=== PATIENT | male | born 1965 | race African-American/Black ===

== ENCOUNTER 2020-11-18 14:52 | Emergency (ER) | payer MEDICAID, OTHER ==
[~2020-11-18] VITALS: Ht 185.4 cm; Wt 127.0 kg
[~2020-11-18 14:52] MED LIST: AMLO10TA59 PO
[2020-11-18] MEDS ORDERED: NAPR220T66 PO (15:08)
[2020-11-18 15:21] LABS: BASOPHILS # (AUTO) 0.1 K/uL (0.0-8.0); BASOPHILS % (AUTO) 0.5 % (0.0-2.0); EOSINOPHILS # (AUTO) 0.1 K/uL (0.0-0.7); EOSINOPHILS % (AUTO) 0.4 % (0.0-7.0); HEMATOCRIT 43.5 % (36.7-47.1); HEMOGLOBIN 14.4 g/dL (12.5-16.3); LYMPHOCYTES # (AUTO) 3.9 K/uL (20.0-40.0); LYMPHOCYTES % (AUTO) 27.7 % (20.5-51.5); MEAN CORPUSCULAR HEMOGLOBIN 27.5 uug (23.8-33.4); MEAN CORPUSCULAR HGB CONC 33 g/dL (32.5-36.3); MEAN CORPUSCULAR VOLUME 82.8 fL (73.0-96.2); MONOCYTES # (AUTO) 0.8 K/uL (2.0-10.0); MONOCYTES % (AUTO) 5.9 % (0.0-11.0); NEUTROPHILS # (AUTO) 9.3 K/uL (1.8-8.9); NEUTROPHILS % (AUTO) 65.5 % (38.5-71.5); PLATELET COUNT (AUTO) 240 K/uL (152-348); RED BLOOD CELL COUNT(AUTO) 5.25 MIL/uL (4.06-5.63); WHITE BLOOD COUNT (AUTO) 14.2 K/uL (3.6-10.2)
[2020-11-18] MEDS ORDERED: ASPIRIN 325 MG TABLET ONE (15:26)
[2020-11-18] MEDS ORDERED: MAG HYDROX/AL HYDROX/SIMETH 30 ML LIQUID UDC ONE (15:27)
[2020-11-18] MEDS ORDERED: DICYCLOMINE HCL LIQ 10 MG/5 ML UDC ONE (15:27)
[2020-11-18] MEDS ORDERED: NITROGLYCERIN 0.4 MG/TAB BOTTLE SL ONE (15:27)
[2020-11-18] MEDS ORDERED: PANTOPRAZOLE SODIUM 40 MG VIAL ONE (15:27)
[2020-11-18 15:30] LABS: CREATININE 1.2 mg/dL (0.6-1.3); POTASSIUM 3.1 mmol/L (3.5-5.1)
[2020-11-18] MEDS: PANTOPRAZOLE SODIUM 40 MG VIAL IV ONE (15:30)
[2020-11-18] MEDS: MAG HYDROX/AL HYDROX/SIMETH 30 ML LIQUID UDC PO ONE (15:32)
[2020-11-18] MEDS: NITROGLYCERIN 0.4 MG/TAB BOTTLE SL ONE (15:32)
[2020-11-18] MEDS: DICYCLOMINE HCL LIQ 10 MG/5 ML UDC PO ONE (15:33)
[2020-11-18] MEDS: ASPIRIN 325 MG TABLET PO ONE (15:33)
[2020-11-18] MEDS ORDERED: LABETALOL HCL 100 MG/20 ML VIAL ONE (15:40)
[2020-11-18] MEDS: LABETALOL HCL 100 MG/20 ML VIAL IV ONE ×2 (15:42→16:02)
--- NOTE | 2020-11-18 15:46 | NUR ---
Pt denies chest pain/discomfort, and shortness of breath. Walked to the bathroom w/o chest discomfort.
[2020-11-18] MEDS ORDERED: CLON0.2T PO (16:04)
--- NOTE | 2020-11-18 16:30 | NUR ---
Pt remaines pain free. Pt states he has an appointment w/ his PCP tommorow, and will follow up.
[2020-11-18 16:34] VITALS: BP 159/89
--- NOTE | 2020-11-18 16:35 | NUR ---
IV removed. Catheter intact and site benign. Pressure and 4x4 gauze applied to site. No bleeding noted.
--- NOTE | 2020-11-18 16:38 | NUR ---
Patient discharged to home in stable condition. Written and verbal after care instructions given. Patient verbalizes understanding of instructions. Stressed follow up or return to ER for worsening s/s.
== END 2020-11-18 16:38 | disposition home or self-care (01) ==
LOC: ER 14:52
DX: R07.9 Chest pain, unspecified (principal); I10 Essential (primary) hypertension; R94.31 Abnormal electrocardiogram [ECG] [EKG]; Z88.1 Allergy status to other antibiotic agents
CPT/HCPCS: 36415; 71045; 80048; 84484; 85025; 93005 ×2; 96374; 96375; 99285; C9113; J3490; 70030-TC; A4663

== ENCOUNTER 2020-11-30 00:21 | Emergency (ER) | payer OTHER ==
[~2020-11-30] VITALS: Ht 185.4 cm; Wt 143.3 kg
[~2020-11-30 00:21] MED LIST changes: -AMLO10TA59 PO; +CLON0.2T PO; +NAPR220T66 PO
--- NOTE | 2020-11-30 00:37 | NUR ---
Patient presents to ER with c/o of elevated blood pressure at home. Denies chest pain, shortness of breath or headache. No acute distress noted. Dr. Barron at bedside examining patient.
[2020-11-30] MEDS ORDERED: CLONIDINE HCL 0.1 MG TABLET PO ONE (00:45)
[2020-11-30] MEDS ORDERED: CLONIDINE HCL 0.1 MG TABLET ONE (00:57)
[2020-11-30 01:08] LABS: BASOPHILS % (AUTO) 0.3 % (0.0-2.0); CREATININE 1.2 mg/dL (0.6-1.3); EOSINOPHILS # (AUTO) 0.1 K/uL (0.0-0.7); HEMATOCRIT 41.9 % (36.7-47.1); LYMPHOCYTES # (AUTO) 2.5 K/uL (20.0-40.0); LYMPHOCYTES % (AUTO) 22.4 % (20.5-51.5); MEAN CORPUSCULAR HEMOGLOBIN 27.5 uug (23.8-33.4); MEAN CORPUSCULAR HGB CONC 33 g/dL (32.5-36.3); MEAN CORPUSCULAR VOLUME 82.4 fL (73.0-96.2); MONOCYTES # (AUTO) 0.6 K/uL (2.0-10.0); MONOCYTES % (AUTO) 5.3 % (0.0-11.0); NEUTROPHILS # (AUTO) 7.8 K/uL (1.8-8.9); PLATELET COUNT (AUTO) 264 K/uL (152-348); POTASSIUM 3.4 mmol/L (3.5-5.1); RED BLOOD CELL COUNT(AUTO) 5.08 MIL/uL (4.06-5.63)
--- NOTE | 2020-11-30 01:32 | NUR ---
Lt arm BP 168/95 Rt arm BP 163/99. Dr. Barron made aware.
[2020-11-30] MEDS ORDERED: ASPIRIN EC 81 MG TABLET.DR PO ONE (01:41)
[2020-11-30] MEDS ORDERED: ASPIRIN EC 81 MG TABLET.DR PO SCH ×2 (01:45)
[2020-11-30] MEDS ORDERED: POTASSIUM BICARBONATE/CIT AC 25 MEQ TABLET.EFF PO ONE (01:45)
[2020-11-30] MEDS ORDERED: hydrALAZINE HCL 20 MG/1 ML VIAL IV ONE (02:00)
[2020-11-30] MEDS ORDERED: POTASSIUM BICARBONATE/CIT AC 25 MEQ TABLET.EFF ONE (02:02)
[2020-11-30] MEDS ORDERED: hydrALAZINE HCL 20 MG/1 ML VIAL ONE (02:03)
[2020-11-30 02:09] VITALS: BP 176/109
--- NOTE | 2020-11-30 03:30 | NUR ---
Patient in [facility]. NAD noted.
--- NOTE | 2020-11-30 06:00 | NUR ---
Dr. Barron at bedside speaking with patient. Patient requested to leave AMA.
--- NOTE | 2020-11-30 06:22 | NUR ---
Patient signed AMA form, copies of labs and x ray report provided per Dr. Barron's order. Pt left ER in stable condition. Denied chest pain or shortness of breath at discharge. Addendum: 11/30/20 at 0624 by LAURA IV dc'd noted with tip intact.
[2020-11-30] MEDS ORDERED: LOSA100T31 PO (10:56)
== END 2020-11-30 06:26 | disposition left against medical advice (07) ==
LOC: ER 00:29
DX: I21.4 Non-ST elevation (NSTEMI) myocardial infarction (principal); I11.9 Hypertensive heart disease without heart failure; E87.6 Hypokalemia; Z79.899 Other long term (current) drug therapy; R73.03 Prediabetes
CPT/HCPCS: 36415; 71045; 80048; 83735; 84484 ×2; 85025; 93005 ×2; 96374; 99285; J0360; 70030-TC; A4663

== ENCOUNTER 2020-11-30 10:40 | Inpatient (IN) | payer OTHER ==
[~2020-11-30] VITALS: Ht 188 cm; Wt 138.3 kg
[2020-11-30] MEDS ORDERED: LOSA100T31 PO (10:56)
--- NOTE | 2020-11-30 11:20 | NUR ---
Per Dr. Marsh pt may be admitted and transfered to tele floor. Dr. Interiano in ER to see pt. Called tele floor for bed assignment, per charge nurse they can not accept the pt until they have a discharge on the floor due to staffing issues. Pt resting with NAD noted.
--- NOTE | 2020-11-30 11:24 | NUR ---
Nursing beater room supervisor notified of no tele beds available at this time, pt to be held in ER until further notice.
--- NOTE | 2020-11-30 11:29 | NUR ---
S/w Kendra MOFFETT from patient's insurance. Call back Troponin results to: [phone].
[2020-11-30] MEDS ORDERED: hydrALAZINE HCL 20 MG/1 ML VIAL IV ONE ×2 (11:30→21:00)
[2020-11-30] MEDS ORDERED: hydrALAZINE HCL 20 MG/1 ML VIAL ONE (11:37)
--- NOTE | 2020-11-30 11:41 | NUR ---
Kendra given an update on the Troponin 0.122. Pending call back from Jeramie Whitney
[2020-11-30] MEDS ORDERED: Z GUARD REMEDY PASTE 57 GM TUBE TOP PRN (11:45)
[2020-11-30] MEDS ORDERED: HYDROCODONE/APAP 5-325MG TABLET PO PRN (11:45)
[2020-11-30] MEDS ORDERED: MORPHINE SULFATE 2 MG/1 ML DISP.SYRIN IV PRN (11:45)
[2020-11-30] MEDS ORDERED: MAGNESIUM HYDROXIDE 30 ML LIQUID UDC PO PRN (11:45)
[2020-11-30] MEDS ORDERED: ONDANSETRON 4 MG/2 ML VIAL IV PRN (11:45)
[2020-11-30] MEDS ORDERED: ASPIRIN 325 MG TABLET PO SCH (11:45)
[2020-11-30] MEDS ORDERED: METOPROLOL TARTRATE 50 MG TABLET PO SCH (11:45)
[2020-11-30] MEDS ORDERED: ACETAMINOPHEN 325 MG TABLET PO PRN (11:45)
[2020-11-30] MEDS ORDERED: CLONIDINE HCL 0.1 MG TABLET PO PRN (12:00)
--- NOTE | 2020-11-30 13:26 | NUR ---
Pt resting, NAD noted. Pend tele admission.
--- NOTE | 2020-11-30 15:15 | NUR ---
SBAR report given to ARIELLE Molina via telephone.
--- NOTE | 2020-11-30 15:45 | NUR ---
Pt trans to tele room 221, NAD noted.
[2020-11-30] MEDS ORDERED: AMLODIPINE 5 MG TABLET PO SCH (15:52)
[2020-11-30 16:15] VITALS: BP 164/105
[2020-11-30] MEDS ORDERED: CLONIDINE HCL 0.2 MG TABLET PO SCH (17:00)
[2020-11-30] MEDS ORDERED: CARVEDILOL 3.125 MG TABLET PO SCH (17:00)
[2020-11-30 18:00] VITALS: BP 152/97
--- NOTE | 2020-11-30 18:45 | NUR ---
Admitted this 55 y/o male from ER transferred via wheelchair at 1533. Patient is alert, oriented x 4, not in any form of distress, on room air, ambulatory. Skin is intact. Peripheral IV on the left hand G22, intact and patent. He denies any pain or discomfort. Oriented patient to staff, room and use of amenities with verbalized understanding. Call light and frequently used items placed within patient's reach. Assisted with his needs promptly. Dr. Watson in the unit and ordered cardiac CTA for tomorrow at [facility], faxed order to Tre[facility] at [facility] and informed social work case manager regarding order. Per CM she will update us regarding schedule for CTA. Due medications administered and tolerated well. Will continue to monitor and will endorse accordingly.
--- NOTE | 2020-11-30 19:00 | NUR ---
PATIENT ALERT ORIENTED, NO SOB NO CHEST PAIN. PATIENT HAS ELEVATED BP WITH MEDICATE ORDERED, TELE MONITOR SINUS RHYTHM. PATENT HAS NO S/S OF DISTRESS.
[2020-11-30 20:46] VITALS: BP 175/111
--- NOTE | 2020-11-30 20:50 | NUR ---
PATIENT HAS ELEVATED BP GIVEN CLONIDINE 0.1MG PO, AND NOTIFY DR. FIGUEROA THAT PATIENT 1DEG AV BLOCK, LASTED OF ONE HOUR, WITH ORDER OF HYDRALAZINE 20MG IV ONE TIME.
[2020-11-30] MEDS ORDERED: ATORVASTATIN 20 MG TABLET PO SCH (21:00)
[2020-11-30] MEDS ORDERED: NORMAL SALINE NASAL 45 ML BOTTLE NS PRN (22:30)
[2020-12-01 00:33] VITALS: BP 158/100
--- NOTE | 2020-12-01 02:20 | NUR ---
REPORT GIVEN TO DESTINY GUZMÁN FROM [facility].
--- NOTE | 2020-12-01 03:28 | NUR ---
PATIENT CHIEF OF [facility] PATROL BY [facility] TO GO TO [facility], IN FAIR BUT STABLE CONDITION. PATIENT ALERT ORIENTED, NO SOB NO CHEST PAIN, TOOK ALL BELONGINGS.
[2020-12-01] MEDS ORDERED: ASPIRIN 81 MG TAB.CHEW PO SCH (09:00)
[2020-12-01] MEDS ORDERED: LOSARTAN POTASSIUM 50 MG TABLET PO SCH (09:00)
== END 2020-12-01 03:35 | disposition short-term general hospital (02) | DRG 190 ==
LOC: ER 10:41 → TELE3 15:25
PROVIDERS: ADMIT Internal Medicine; ATTEND Internal Medicine
DX: I21.4 Non-ST elevation (NSTEMI) myocardial infarction (principal); I16.0 Hypertensive urgency; R94.31 Abnormal electrocardiogram [ECG] [EKG]; Z20.822 Contact with and (suspected) exposure to COVID-19
CPT/HCPCS: 36415; 70030-TC; 93005; 93307; A4663; G0378; J0360

== ENCOUNTER 2020-12-11 23:23 | Emergency (ER) | payer OTHER ==
[~2020-12-11] VITALS: Ht 185.4 cm; Wt 136.1 kg
[~2020-12-11 23:23] MED LIST changes: +LOSA100T31 PO
--- NOTE | 2020-12-11 23:32 | NUR ---
MD Ochoa in room to do MSE.
[2020-12-11] MEDS ORDERED: ASPIRIN 81 MG TAB.CHEW PO ONE (23:45)
--- NOTE | 2020-12-11 23:50 | NUR ---
Patient refusing long-term placement of IV access, only wants his blood drawn.
--- NOTE | 2020-12-11 23:50 | NUR ---
installer technician in room to draw blood.
--- NOTE | 2020-12-11 23:52 | NUR ---
process control tech in room to do chest x-ray.
[2020-12-12 00:03] LABS: BASOPHILS % (AUTO) 0.4 % (0.0-2.0); EOSINOPHILS # (AUTO) 0.2 K/uL (0.0-0.7); EOSINOPHILS % (AUTO) 1.8 % (0.0-7.0); HEMOGLOBIN 13.3 g/dL (12.5-16.3); LYMPHOCYTES # (AUTO) 3.1 K/uL (20.0-40.0); LYMPHOCYTES % (AUTO) 33.4 % (20.5-51.5); MEAN CORPUSCULAR HEMOGLOBIN 27.5 uug (23.8-33.4); MEAN CORPUSCULAR HGB CONC 33 g/dL (32.5-36.3); MEAN CORPUSCULAR VOLUME 82.8 fL (73.0-96.2); MONOCYTES # (AUTO) 0.6 K/uL (2.0-10.0); MONOCYTES % (AUTO) 6.7 % (0.0-11.0); NEUTROPHILS # (AUTO) 5.3 K/uL (1.8-8.9); NEUTROPHILS % (AUTO) 57.7 % (38.5-71.5); PLATELET COUNT (AUTO) 296 K/uL (152-348); RED BLOOD CELL COUNT(AUTO) 4.83 MIL/uL (4.06-5.63); WHITE BLOOD COUNT (AUTO) 9.2 K/uL (3.6-10.2)
[2020-12-12] MEDS ORDERED: ASPIRIN 81 MG TAB.CHEW ONE (00:06)
[2020-12-12 00:20] LABS: CREATININE 1.5 mg/dL (0.6-1.3); POTASSIUM 3.8 mmol/L (3.5-5.1)
[2020-12-12 00:45] VITALS: BP 142/96
--- NOTE | 2020-12-12 00:45 | NUR ---
Patient discharged to home in stable condition. Written and verbal after care instructions given. Patient verbalizes understanding of instructions. Stressed follow up or return to ER for worsening s/s. Patient ambulates with steady gait, V/S stable, patient received copies of X-ray, left with all personal belongings.
== END 2020-12-12 00:45 | disposition home or self-care (01) ==
LOC: ER 23:25
DX: R07.89 Other chest pain (principal); I44.0 Atrioventricular block, first degree; R00.1 Bradycardia, unspecified; E78.5 Hyperlipidemia, unspecified
CPT/HCPCS: 36415; 70030-TC; 71045; 85025; 93005; A4663